=== PATIENT | male | born 1995 | race African-American/Black ===

== ENCOUNTER 2024-11-24 13:03 | Emergency (ER) | payer OTHER, SELFPAY ==
--- NOTE | 2024-11-24 13:13 | ED_ITS ---
HPI - Male Genitourinary General Chief complaint: Urogenital-Male Stated complaint: STD Time Seen by Provider: 11/24/24 13:05 Source: patient Mode of arrival: ambulatory Limitations: no limitations History of Present Illness HPI Narrative: Galen is a 29-year-old heterosexual male patient presenting to the clinic today with complaints of chlamydia exposure. He reports his ex girlfriend called him last night and let him know that she was positive for chlamydia. He is not having any symptoms. He denies any urinary symptoms, no blood in semen, penile discharge, testicle pain, abdominal pain, or back pain. No fevers, chills, body aches. Related Data Allergies Allergy/AdvReac Type Severity Reaction Status Date / Time No Known Allergies Allergy Verified 11/24/24 13:16 Review of Systems Review of Systems: Pertinent positives per HPI. Patient denies any fever, chills, rash, headache, visual changes, dizziness, cough, runny nose, sore throat, shortness of breath, chest pain, palpitations, nausea, vomiting, diarrhea, constipation, abdominal pain, or any urinary issues. PMFSH Comments At the time of my signature, I reviewed and agree with the nursing past medical, surgical, social, and family history. There is no relevant family history pertinent to the patient complaint. Exam Narrative: General: Well-developed, well nourished, in no apparent distress. Head: Normocephalic, atraumatic. Cardio: Regular rate and rhythm, s1 and s2 normal, no murmur appreciated. Resp: Clear to auscultation bilaterally, no rhonchi, rales, wheezing or rubs. Abdomen: Soft, pliable, bowel sounds present in all quadrants, non-tender to palpation, no organomegly, no CVAT tenderness. : Deferred Course Course Emergency Course: Portions of this record may have been created with voice recognition software. Level of Care: Express Care Visit Vital Signs Vital signs: Vital Signs Temperature 37.1 C 11/24/24 13:21 Pulse Rate 70 11/24/24 13:21 Respiratory Rate 16 11/24/24 13:21 Blood Pressure 144/95 H 11/24/24 13:21 Pulse Oximetry 100 11/24/24 13:21 Oxygen Delivery Room Air 11/24/24 13:21 Temperature 37.1 C 07/18/25 13:21 Pulse Rate 70 11/24/24 13:21 Respiratory Rate 16 11/24/24 13:21 Blood Pressure 144/95 H 11/24/24 13:21 Pulse Oximetry 100 11/24/24 13:21 Oxygen Delivery Room Air 11/24/24 13:21 Vital signs reviewed MDM - Male Genitourinary MDM Narrative Medical decision making narrative: At the time of visit patient is resting comfortably on the exam table. Patient appears to be nontoxic. Patient reports that he had been exposed to chlamydia- sexual partner contacted in last night. Is asymptomatic and here for evaluation. We will order urine testing-chlamydia, gonorrhea, and Trichomonas. Plan: Will cover patient for chlamydia exposure and place him on doxycycline. Anticipatory guidance /Supportive measures were discussed with the patient and they voiced understanding discharge instructions and agrees to treatment plan. Will contact patient with test results and prescribe further medications as needed. Return precautions reviewed Differential Diagnosis Differential diagnosis: Likely urinary tract infection, urethritis, epididymitis, genital herpes simplex, prostatitis, acute retention of urine and other (STI exposure) Discharge Plan Discharge Clinical Impression: Exposure to chlamydia Patient Disposition: Home Condition: Stable Instructions: Antibiotic Form, Chlamydia (ED), Safe Sex Practices (ED) Additional Instructions: Will treat you for chlamydia in the clinic today-take doxycycline as prescribed We have tested/treated you for STIs in the clinic today. Avoid any sexual activity- includes oral, anal, or vaginal intercourse until you get results back and have completed any additional recommended treatment regimens. We will contact you if testing is positive and make sure your treatment was appropriate for the type of STI. If symptoms worsen after treatment recommend reevaluation with your PCP or Express care. Patient Language: Slovak Prescriptions: New doxycycline monohydrate 100 mg capsule 100 mg PO BID 7 Days Qty: 14 0RF Follow-up/Referrals: PHYSICIAN,SENIOR WATER/WASTEWATER ENGINEER [Primary Care Provider] - Time of Disposition: 13:23 Quality NIHSS Nursing Documentation ED NIHSS nursing documentation: reviewed/agree
[2024-11-24 13:21] VITALS: BP 144/95; PULSE 70; RESP 16; TEMP 37.1; O2SAT 100
[2024-11-24 19:23] LABS: Trichomonas Vag PCR NOT DETECTED (NOT DETECTE)
== END 2024-11-24 13:40 | disposition home or self-care (01) ==
PROVIDERS: Emergency Provider Nurse Practitioner Family
DX: A74.9 Chlamydial infection, unspecified (principal)
CPT/HCPCS: 87491; 87591; 87661; 99203; G0463

== ENCOUNTER 2024-12-10 08:32 | Emergency (ER) | payer OTHER, SELFPAY ==
[2024-12-10 08:46] VITALS: BP 131/86; PULSE 58; RESP 16; TEMP 36.5; O2SAT 100
--- NOTE | 2024-12-10 09:20 | ED.GENADULT ---
HPI - General Adult General Chief complaint: Skin/Abscess/Foreign Body Stated complaint: hemorrhoids Time Seen by Provider: 12/10/24 09:04 Source: patient and RN notes reviewed Mode of arrival: ambulatory Limitations: no limitations History of Present Illness HPI narrative: Patient presents today stating that he has painful hemorrhoid that he noted yesterday. Denies constipation or blood with bowel movement. Last stool was yesterday and was normal. No history of hemorrhoids. He has tried no interventions prior to arrival. Related Data Allergies Allergy/AdvReac Type Severity Reaction Status Date / Time No Known Allergies Allergy Verified 12/10/24 08:53 PMFSH Comments At time of signature, I have reviewed and agree with nursing past medical, surgical, social and family history unless otherwise noted. Please see nursing chart for further information. There is no relevant family history pertinent to the presenting complaint Exam Narrative: GENERAL: Well-appearing, well-nourished, and in no acute distress. HEAD: Normocephalic, atraumatic. EYES: EOMI. No redness or drainage. Conjunctivae normal. ENT: Mucous membranes pink and moist. NECK: Normal AROM. CHEST: No respiratory distress. : Large external hemorrhoid. No thrombosis. Tender to palpation. No bleeding. EXTREMITIES: Normal range of motion. No edema. SKIN: Warm, dry, no rash. Capillary refill normal. Normal skin turgor. NEURO: No focal deficits. Alert and oriented x3. Gait steady. PSYCH: Normal affect. No signs of depression or anxiety. Course Course Level of Care: Express Care Visit Vital Signs Vital signs: Vital Signs Temperature 97.7 F 12/10/24 08:46 Pulse Rate 58 L 12/10/24 08:46 Respiratory Rate 16 12/10/24 08:46 Blood Pressure 131/86 12/10/24 08:46 Pulse Oximetry 100 12/10/24 08:46 Temperature 97.7 F 12/10/24 08:46 Pulse Rate 58 L 12/10/24 08:46 Respiratory Rate 16 12/10/24 08:46 Blood Pressure 131/86 12/10/24 08:46 Pulse Oximetry 100 12/10/24 08:46 Reviewed Medical Decision Making [facility] Narrative Medical decision making narrative: 29-year-old male patient presents today with complaints of external hemorrhoid since yesterday. Upon exam, patient has large external hemorrhoid without thrombosis or bleeding. Prescription for Anusol sent to pharmacy. Recommend witch Laxmi pads, Sitz bath, stool softener. 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 Provided him a work note for a few days so he can start treatment. Recommend making an appointment with his PCP for follow-up in approximately 1 week. Vital signs stable. Patient agrees with plan. Anticipatory guidance given. Differential Diagnosis Differential Diagnosis: Anal fissure, external hemorrhoid, internal hemorrhoid, perirectal abscess Vital Signs Vital Signs: Vital Signs Temperature 97.7 F 12/10/24 08:46 Pulse Rate 58 L 12/10/24 08:46 Respiratory Rate 16 12/10/24 08:46 Blood Pressure 131/86 12/10/24 08:46 Pulse Oximetry 100 12/10/24 08:46 Temperature 97.7 F 12/10/24 08:46 Pulse Rate 58 L 12/10/24 08:46 Respiratory Rate 16 12/10/24 08:46 Blood Pressure 131/86 12/10/24 08:46 Pulse Oximetry 100 12/10/24 08:46 Critical Care Time Critical Care Time Critical Care Time: No Discharge Plan Discharge Clinical Impression: Hemorrhoids Qualifiers: Hemorrhoid type: unspecified Qualified Code(s): K64.9 - Unspecified hemorrhoids Patient Disposition: Home Condition: Stable Instructions: Hemorrhoids (DC), Sitz Bath (DC) Additional Instructions: You have developed a large hemorrhoid. Please use the Anusol as directed. You may also try some OTC witch Laxmi pads for itching and irritation. Be sure to drink plenty of water and start a stool softener such as Colace (docusate). Cut down on heavy lifting if possible. Take Tylenol or ibuprofen for discomfort if needed. Take Sitz baths to help with swelling and inflammation(an info sheet has been provided for you). Follow-up with your PCP after 1 week if symptoms are not improving. Patient Language: Kazakh Prescriptions: New hydrocortisone [Anusol-HC] 2.5 % cream with perineal applicator 1 applic RECTAL BID PRN (Reason: pain) Qty: 30 0RF Rx Instructions: Apply sparingly up to twice daily No Action doxycycline monohydrate 100 mg capsule 100 mg PO BID 7 Days Qty: 14 0RF Follow-up/Referrals: Fabiano Olivera APRN [Primary Care Provider] - Stand Alone Forms: Work/School Release IP Time of Disposition: 09:24
== END 2024-12-10 09:33 | disposition home or self-care (01) ==
PROVIDERS: Emergency Provider Nurse Practitioner; PCP Nurse Practitioner
DX: K64.9 Unspecified hemorrhoids (principal)
CPT/HCPCS: 99213; G0463